=== PATIENT | female | born 1955 | race Caucasian/White ===

== ENCOUNTER 2022-08-11 08:02 | Day surgery (SDC) | payer MEDICARE, BC ==
[~2022-08-11] VITALS: Ht 167.6 cm; Wt 70.0 kg
[2022-08-11 08:20] VITALS: BP 128/69
[2022-08-11] MEDS ORDERED: LEVO50TA8 PO (08:21)
[2022-08-11] MEDS ORDERED: ALBU8HFA PO (08:21)
[2022-08-11] MEDS ORDERED: BUDE10.7 INH (08:21)
[2022-08-11] MEDS ORDERED: TIZA4CAP PO (08:21)
[2022-08-11] MEDS ORDERED: ESCI-8 PO (08:21)
[2022-08-11] MEDS ORDERED: ATOR40TA72 PO (08:21)
[2022-08-11] MEDS ORDERED: AMLO5TAB16 PO (08:21)
[2022-08-11] MEDS ORDERED: ASPI81TA52 PO (08:21)
[2022-08-11] MEDS ORDERED: LIDOcaine Viscous 15ml cup ONE (09:17)
[2022-08-11] MEDS ORDERED: fentaNYL/PF 50MCG/1 ML 2ML syringe ONE (09:17)
[2022-08-11] MEDS ORDERED: MIDAZolam 1 MG/ML 5ML VIAL ONE (09:17)
[2022-08-11] MEDS ORDERED: glucagon, human recombinant 1mg kit ONE (10:49)
[2022-08-11 11:20] VITALS: BP 113/67
[2022-08-11 11:30] VITALS: BP 111/57
[2022-08-11 11:40] VITALS: BP 108/56
[2022-08-11 11:50] VITALS: BP 110/70
== END 2022-08-11 11:55 | disposition home or self-care (01) ==
LOC: GI LAB 08:02
PROVIDERS: ATTEND Internal Medicine Gastroenterology
DX: R19.5 Other fecal abnormalities (principal); K57.30 Diverticulosis of large intestine without perforation or abscess without bleeding; J44.9 Chronic obstructive pulmonary disease, unspecified; G43.909 Migraine, unspecified, not intractable, without status migrainosus; G91.9 Hydrocephalus, unspecified; Z88.5 Allergy status to narcotic agent; Z88.8 Allergy status to other drugs, medicaments and biological substances; Z79.899 Other long term (current) drug therapy; Z98.2 Presence of cerebrospinal fluid drainage device; Z80.0 Family history of malignant neoplasm of digestive organs
CPT/HCPCS: 45378; 99153; G0500; J1610; J2250; J3010; J7030; Z7512; 99152; A4620